=== PATIENT | male | born 1955 | race Caucasian/White ===

== ENCOUNTER 2024-07-03 12:30 | Emergency (ER) | payer MEDICARE, OTHER, SELFPAY ==
[2024-07-03 12:38] VITALS: BP 161/96; PULSE 83; TEMP 36.6; O2SAT 97; BMI 25.4
--- NOTE | 2024-07-03 12:46 | XR_ITS ---
The [address] [address] Patient Name: JOSE ART MRN: [id number] date: 1955 Sex: M Assigned Patient Location: ER Current Patient Location: ED.MAIN Accession/Order Number: [id number] Exam Date: 07/03/2024 12:53 Report Date: 07/03/2024 13:56 At the request of: AILYN CONTRERAS Procedure: XR chest 1V EXAM: XR chest 1V HISTORY: Cough COMPARISON: None. TECHNIQUE: AP erect portable chest radiograph performed. FINDINGS: The trachea is midline. The heart size is normal. There is mild atheromatous calcification at the aortic arch. The hilar shadows are unremarkable. There is no consolidation, pleural effusion or pulmonary vascular congestion. There is no pneumothorax or acute osseous abnormality. XR/XR chest 1V IMPRESSION: There is no acute cardiopulmonary process. Electronically authenticated by: ERIKA COSTA Date: 07/03/2024 13:56
--- NOTE | 2024-07-03 12:47 | ED_ITS ---
HPI - URI/Sore Throat General Chief Complaint: Upper Respiratory Infection Stated Complaint: COUGH, CHILLS, DIARRHEA Time Seen by Provider: 07/03/24 12:43 Source: patient History of Present Illness HPI Narrative: 69-year-old male presents for cough and congestion. He states he has been sick for about 10 days and he has been coughing up yellow to green-colored phlegm. He is also worried about his sinuses and he states there is a lot of drainage from them as well. He has had some diarrhea and his appetite has been poor. No known fever. Related Data Previous Rx's ?Medication ?Instructions ?Recorded amoxicillin 500 mg capsule 500 mg PO TID 10 days #30 caps 07/03/24 Allergies Allergy/AdvReac Type Severity Reaction Status Date / Time No Known Drug Allergies Allergy Verified 07/03/24 12:41 Review of Systems ROS Narrative A ten point review of systems is negative except as noted above. PFSH PFSH Social History Little interest or pleasure in doing things: not at all Feeling down, depressed, or hopeless: not at all Exam Narrative Exam Narrative: Nurses note and vital signs reviewed and patient is not hypoxic. General: The patient appears well and in no apparent distress. Patient is resting comfortably on cart. Skin: Warm, dry, no pallor noted. There is no rash noted. Head: Normocephalic, atraumatic Eye: Normal conjunctiva, no drainage Ears, Nose, Mouth, and Throat: oral mucosa is moist. Nares patent. No pharyngeal erythema or exudate Cardiovascular: Regular Rate and Rhythm Respiratory: Patient is in no distress, no accessory muscle use, lungs are clear to auscultation, no wheezing, rales or rhonchi Back: non-tender GI: Soft and nontender Musculoskeletal: The patient has no evidence of calf tenderness, no pitting edema, symmetrical pulses noted bilaterally Neurological: A&O, normal speech Psychiatric: Cooperative Constitutional Vital Signs, click to edit/add: Last Vital Signs Temp 97.9 F 07/03/24 12:38 Pulse 83 07/03/24 12:38 Resp 18 07/03/24 12:38 BP 161/96 H 07/03/24 12:38 Pulse Ox 97 07/03/24 12:38 O2 Del Method Room Air 07/03/24 12:38 Course Vital Signs Vital signs: Vital Signs Temperature 97.9 F 07/03/24 12:38 Pulse Rate 83 07/03/24 12:38 Respiratory Rate 18 07/03/24 12:38 Blood Pressure 161/96 H 07/03/24 12:38 Pulse Oximetry 97 07/03/24 12:38 Oxygen Delivery Method Room Air 07/03/24 12:38 Temperature 97.9 F 07/03/24 12:38 Pulse Rate 83 07/03/24 12:38 Respiratory Rate 18 07/03/24 12:38 Blood Pressure 161/96 H 07/03/24 12:38 Pulse Oximetry 97 07/03/24 12:38 Oxygen Delivery Method Room Air 07/03/24 12:38 MDM - URI/Sore Throat MDM Narrative Medical decision making narrative: Chest x-ray, COVID, and influenza are negative. Blood work is unremarkable. My clinical impression is that he has a sinus infection. Treatment diagnosis and follow-up were discussed with the patient and his . Differential Diagnosis Differential diagnosis: Likely upper respiratory infection, sinusitis, viral infection, influenza and other (COVID, pneumonia) Lab Data Attestation: I reviewed the patient's lab results. Labs: Lab Results 07/03/24 07/03/24 Range/Units 12:57 12:58 WBC 10.9 (4.0-11.0) 10^3/uL RBC 5.24 (4.70-6.10) 10^6/uL Hgb 15.8 (14.0-18.0) g/dL Hct 46.7 (42.0-54.0) % MCV 89.1 (80.0-94.0) fL MCH 30.2 (25.9-34.0) pg MCHC 33.8 (29.9-35.2) g/dL RDW 11.5 (11.0-15.0) % Plt Count 390 (150-450) 10^3/uL MPV 9.1 L (9.5-13.5) fL Neut % (Auto) 67.2 (43.0-75.0) % Lymph % (Auto) 23.2 (20.5-60.0) % [place] % (Auto) 7.1 (1.7-12.0) % Eos % (Auto) 1.8 (0.9-7.0) % Baso % (Auto) 0.2 (0.2-2.0) % Neut # (Auto) 7.3 H (1.4-6.5) 10^3/uL Lymph # (Auto) 2.5 (1.2-3.8) 10^3/uL [place] # (Auto) 0.8 (0.3-0.8) 10^3/uL Eos # (Auto) 0.2 (0.0-0.7) 10^3/uL Baso # (Auto) 0.0 (0.0-0.1) 10^3/uL Abs Immat Gran (auto) 0.05 H (0.00-0.03) 10^3/uL Imm/Tot Granulo (auto) 0.5 (0.0-0.5) % Sodium 142 (136-145) mmol/L Potassium 4.0 (3.5-5.1) mmol/L Chloride 106 (98-107) mmol/L Carbon Dioxide 24.4 (21.0-32.0) mmol/L Anion Gap 15.6 BUN 15.0 (7.0-18.0) mg/dL Creatinine 1.09 (0.70-1.30) mg/dL Est GFR ( Amer) >60 (>=60 mL/min/1.73m^2) Est GFR (Non-Af Amer) >60 (>=60 mL/min/1.73m^2) BUN/Creatinine Ratio 13.8 Glucose 100 (74-106) mg/dL Calcium 9.7 (8.5-10.1) mg/dL Influenza Type A Ag Negative Influenza Type B Ag Negative SARS-CoV-2 Ag (CV2AG) Negative (NEGATIVE) Imaging Data Chest x-ray: Radiologist's impression: ITS Impressions Chest X-Ray 07/03/24 12:46 IMPRESSION: There is no acute cardiopulmonary process. Electronically authenticated by: ERIKA COSTA Date: 07/03/2024 13:56 Discharge Plan Discharge Chief Complaint: Upper Respiratory Infection Clinical Impression: Sinusitis Patient Disposition: Home, Self-Care Time of Disposition Decision: 14:14 Condition: Good Mode of Transportation: Private Vehicle Prescriptions / Home Meds: New amoxicillin 500 mg capsule 500 mg PO TID 10 Days Qty: 30 0RF Print Language: Hungarian Instructions: Sinusitis (ED) Referrals: JONI SANTOS [Primary Care Provider] - 1 week
[2024-07-03 13:11] LABS: Basophils Percent Auto 0.2 % (0.2-2.0); Eosinophils Absolute Auto 0.2 10^3/uL (0.0-0.7); Eosinophils Percent Auto 1.8 % (0.9-7.0); Hematocrit 46.7 % (42.0-54.0); Hemoglobin 15.8 g/dL (14.0-18.0); Immature Granulocytes Abs Auto 0.05 10^3/uL (0.00-0.03); Immature Granulocytes Pct Auto 0.5 % (0.0-0.5); Lymphocytes Absolute Auto 2.5 10^3/uL (1.2-3.8); Lymphocytes Percent Auto 23.2 % (20.5-60.0); Mean Corpuscular HGB Conc 33.8 g/dL (29.9-35.2); Mean Corpuscular Hemoglobin 30.2 pg (25.9-34.0); Mean Corpuscular Volume 89.1 fL (80.0-94.0); Mean Platelet Volume 9.1 fL (9.5-13.5); Monocytes Absolute Auto 0.8 10^3/uL (0.3-0.8); Monocytes Percent Auto 7.1 % (1.7-12.0); Neutrophils Absolute Auto 7.3 10^3/uL (1.4-6.5); Neutrophils Percent Auto 67.2 % (43.0-75.0); Platelet Count 390 10^3/uL (150-450); Red Blood Count 5.24 10^6/uL (4.70-6.10); Red Cell Distribution Width 11.5 % (11.0-15.0); White Blood Count 10.9 10^3/uL (4.0-11.0)
[2024-07-03 13:25] LABS: Influenza Virus A Antigen Negative; Influenza Virus B Antigen Negative; Internal Control Within Normal Limits; SARS-CoV-2 Ag NEGATIVE (NEGATIVE)
[2024-07-03 13:40] LABS: Anion Gap 15.6; BUN Creatinine Ratio 13.8; Calcium 9.7 mg/dL (8.5-10.1); Carbon Dioxide 24.4 mmol/L (21.0-32.0); Chloride 106 mmol/L (98-107); Estimated GFR (African America >60 (>=60 mL/min/1.73m^2); Estimated GFR (Non-African Ame >60 (>=60 mL/min/1.73m^2); Glucose 100 mg/dL (74-106); Sodium 142 mmol/L (136-145)
== END 2024-07-03 14:20 | disposition home or self-care (01) ==
PROVIDERS: Emergency Provider Emergency Medicine; PCP Family Medicine
DX: J32.9 Chronic sinusitis, unspecified (principal)
CPT/HCPCS: 36415; 71045; 80048; 85025; 87804; 87811; 99284